=== PATIENT | female | born 1960 | race American Indian/Alaskan Native ===

== ENCOUNTER 2020-11-11 21:00 | Emergency (ER) | payer BC ==
[2020-11-12 01:01] VITALS: BP 190/81
--- NOTE | 2020-11-12 01:20 | Emergency Department Report ---
Chief Complaint: High BP Stated Complaint: HIGH BP/HEADACHE Time Seen by Provider: 11/12/20 01:13 - HPI History of Present Illness: 60-year-old -[place] female with a history of hypertension presents to the emergency room for blood pressure check. Patient states that she started taking Metamucil and since then her blood pressure has been elevated. Patient denies any chest pain no shortness of breathing no lower leg edema no nausea no vomiting. Patient denies any pain. Patient reports she is seen by primary care provider Dr. Iraida Rain Olmesartan /HCtz 40 mgBystolic 5 mg. Naproxen 500mg. Combigan - Exam Vital Signs: Vital Signs 11/12/20 00:59 Temperature 98.2 F Pulse Rate 74 Respiratory 18 Rate Blood Pressure 190/81 O2 Sat by Pulse 98 Oximetry Physical Exam: General: Awake, appropriately interactive, no acute distress. Neck: Supple. Full range of motion intact. Cardiovascular: Normal peripheral perfusion. Pulmonary: No respiratory distress. Patient is speaking normally without use of accessory muscles. Skin: No apparent rashes or lesions. Neurological: No facial asymmetry. Speech is clear. Follows commands. Patient is alert and oriented. Musculoskeletal: Full range of motion, no crepitus. No tenderness to palpate nonerythematous no edema test appreciated. Able to bear weight and ambulate without difficulty. Distal neurovascular and motor/sensory function is intact. Psych: Cooperative. Appropriate mood and affect. MSE screening note: Focused history and physical exam performed. Due to findings the following was ordered: 60-year-old -[place] female with a history of hypertension presents to the emergency room for blood pressure check. Patient states that she started taking Metamucil and since then her blood pressure has been elevated. Patient denies any chest pain no shortness of breathing no lower leg edema no nausea no vomiting. Patient denies any pain. Patient reports she is seen by primary care provider Dr. Iraida Rain Olmesartan /HCtz 40 mgBystolic 5 mg. Naproxen 500mg. Marla Discussed with patient to discontinue Metamucil continue with her blood pressure medications and follow-up with her primary care provider. ED Disposition for MSE Disposition: - TO HOME OR SELFCARE Is pt being admited?: No Does the pt Need Aspirin: No Condition: Stable Additional Instructions: Continue with medications follow-up with your primary care provider and stop taking the Metamucil. Referrals: ROMÁN GUDINO MD [Referring] - 3-5 Days Forms: Work/School Release Form(ED) Time of Disposition: 01:21
== END 2020-11-12 01:30 | disposition home or self-care (01) ==
LOC: ED 21:00
DX: I10 Essential (primary) hypertension (principal); Z88.5 Allergy status to narcotic agent
CPT/HCPCS: 99281